=== PATIENT | female | born 1945 | race Caucasian/White ===

== ENCOUNTER 2016-12-29 09:24 | Day surgery (SDC) ==
[2016-12-29] MEDS ORDERED: LIDOCAINE HCL 2% LUER-JET ONE (12:06)
[2016-12-29] MEDS ORDERED: VERSED ONE (12:06)
[2016-12-29] MEDS ORDERED: DIPRIVAN 20 ML VIAL IVP ONE (12:06)
[2016-12-29 13:44] VITALS: BP 135/76; TEMP 98
--- NOTE | 2016-12-30 15:55 | OP ---
INDICATIONS FOR PROCEDURE: 71 year old female presents complaining dysphagia. She also had history fo abnormalis colon polyps. MEDICATIONS: SEE ANESTHESIA NOTES. PROCEDURE: 1. ENDOSCOPY DORIAN BIOPSY CITIZEN [place]AT[place] 2. COLONOSCOPY BIOPSY REPORT: The risks, benefits, alternatives and limitations were discussed in detail with the patient. Informed consent was obtained. After adequate sedation was achieved, the video endoscope was introduced in the posterior pharynx and esophagus under direct vision and easily advanced down to the second portion of the duodenum. I then slowly withdrew. The duodenal mucosa appeared unremarkable as did the duodenal bulb. In the antrum there is scattered erythema and scattered superficial ulcerations. The body was unremarkable. Two biopsies from the antrum body were taken for H.Pylori test. The scope was retroflexed to look at the cardia and fundus which revealed a small hiatal hernia. The scope was anteflexed and withdrawn back through the esophagus there is about a 1 cm hiatal hernia. GE junction appeared open. The esophageal mucosa appeared unremarkable in it's entire length. I advanced the scope back down the gastric lumen I placed the guidewire. I then withdrew the scope. Over the guidewire I easily advanced 54 [place] Dilat[employer]. The patient tolerated the procedure well with stable vital signs and pulse oximetry throughout. The patient's bed was turned and a digital rectal exam revealed good tone, no masses. The colonoscope was introduced into the rectum and advanced under direct visual guidance to the cecum. The cecum was identified by the appendiceal orifice and IC valve. I was able to intubate the terminal ileum and examined this for 10cm and this appeared normal. I withdrew the scope back into the cecum. In the cecum in the very beginning of the proximal ascending colon there is superficial clean based ulceration. I biopsied these for histological review. The largest ulceration is about 12mm in size. I then slowly withdrew the scope in circumferential manner and examined the mucosa quite carefully. I looked on the proximal and distal sides of the folds and flexures as best as possible. The remaining colon was unremarkable including on retroflex view of the anal canal. The prep was good. Withdraw time 10 minutes and 30 seconds. The patient tolerated the procedure well with stable vital signs and pulse oximetry throughout. IMPRESSION: 1. Gastritis with antrum ulcerations 2. Small hiatal hernia 3. Successful pass of dilatation of the esophagus 4. Clean based benign appearing clonic ulceration. 5. I suspect her antrum wall clonic ulcer and clonic ulcer are NSAID induced. RECOMMENDATIONS: 1. Advised to avoid non-steroidal agency including the Relafen that she is currently on. 2. Recommend increase in her Nexium to 40mg PO twice a day 3. Advised her to cut and chew her chew well and eat slowly 4. Await pathology results 5. Await H.Pylori results 6. Surveillance colonoscopy examination again in 5 years or sooner if signs or symptoms would indicate otherwise 7. Office visit in 2 months to followup with her dysphagia and her ulcers. If she continues to have dysphagia can consider referring her for motility study. CC: Dr. Eda CONNOR
== END 2016-12-29 13:52 | disposition home or self-care (01) ==
LOC: SURG 09:24
PROVIDERS: ATTEND Internal Medicine Gastroenterology
DX: Z09 Encounter for follow-up examination after completed treatment for conditions other than malignant neoplasm (principal); Z86.010 Personal history of colon polyps; D12.0 Benign neoplasm of cecum; K29.00 Acute gastritis without bleeding; B96.81 Helicobacter pylori [H. pylori] as the cause of diseases classified elsewhere; K44.9 Diaphragmatic hernia without obstruction or gangrene; R13.10 Dysphagia, unspecified
CPT/HCPCS: 87339